=== PATIENT | female | born 1945 | race Caucasian/White ===

== ENCOUNTER → 2016-12-30 | Outpatient (CLI) | payer MEDICARE, BC ==
[~2016-12-30] MED LIST: ADVAIR 500/28 DISKUS IH; ALBUTEROL IH; ALLEGRA 180MG180 MG PO; AMARYL PO; AMARYL4 MG PO; AMLOPIDINE PO; ANTIVERT 25MG25 MG PO; ASPIRIN 32325 MG/TAB PO; ASPIRIN E.C. 8181 MG PO; ATACAND 16M16 MG/TAB PO; ATACAND32 MG PO; ATROVENT INHALE14 GM IH; BACTRIM DS 8001 TAB PO; CELEBREX 200MG200 MG PO; CELEXA40 MG PO; CITALOPRAM20 MG PO; CLARITIN 1010 MG/TAB PO; COUMADIN 77.5 MG/TAB PO; COZAAR100 MG PO; FARXIGA5 PO; FERREX; FERROUS SU325 MG/TAB PO; FLONASE NASAL S16 GM NS; FOLIC ACID 40400 MCG PO; HALCION0.25 MG PO; IPRATROPIUM 2.2.5 ML IH; LASIX 20MG TABL20 MG PO; LASIX 40MG TABL40 MG PO; LEVEMIR100 U/ML SC; LEXAPRO 10MG10 MG PO; LOPRESSOR 225 MG/TAB PO; LORTAB 5/500 501 TAB PO; LORTAB 7.5/5001 TAB PO; METFORMIN HCL1000 MG PO; METHADONE H10 MG/TAB PO; MICRO K PO; MICRO-K 1010 MEQ PO; NEXIUM 40MG40 MG PEG; NEXIUM40 MG PO; NORVASC 5MG5 MG/TAB PO; ONGLYZA5 MG PO; PERCOCET 325 MG1 TA2 PO; POTASSIUM CHLO10 ME2 PO; PREDNISONE1 MG PO; PREMARIN 0.60.625 MG PO; REGLAN 10MG10 MG/TAB PO; RT ADVAIR 228 DISKUS IH; SINGULAIR 110 MG/TAB PO; SINGULAIR10 MG PO; ULTRAM 50MG TAB50 MG PO; VITAMIN C BUFF500 MG PO; ZANTAC 150MG T150 MG PO; ZYRTEC 10MG PO; ZYRTEC5 MG PO; amaryl; depression med; feldene
== END ==
LOC: COL.LAB 16:14
DX: R06.02 Shortness of breath (principal); R63.5 Abnormal weight gain

== ENCOUNTER → 2017-01-13 | Outpatient (CLI) | payer MEDICARE, BC ==
[2017-01-13 11:28] LABS: ANION GAP 10 mmol/L (7-16); BLOOD UREA NITROGEN 18 mg/dL (7-17); CALCIUM 9.8 mg/dL (8.4-10.2); CARBON DIOXIDE 29 mmol/L (22-30); CHLORIDE 102 mmol/L (98-107); CREATININE, serum 0.71 mg/dL (0.52-1.25); GLUCOSE 181 mg/dL (74-106); POTASSIUM 3.9 mmol/L (3.4-5.0); SODIUM 141 mmol/L (137-145)
[2017-01-13 11:40] LABS: B-TYPE NATRIURETIC PEPTIDE 59 pg/mL (0-125)
[2017-01-13 11:50] LABS: TROPONIN-I < 0.012 ng/mL (0.000-0.034)
== END ==
LOC: COL.RAD 10:43
PROVIDERS: Family Medicine
DX: R06.02 Shortness of breath (principal); Z86.711 Personal history of pulmonary embolism
CPT/HCPCS: Q9967

== ENCOUNTER → 2017-01-13 | Outpatient (CLI) | payer MEDICARE, BC | LOC: ZCOL.LAB 13:31 | DX: Z01.89 Encounter for other specified special examinations (principal) ==

== ENCOUNTER 2017-04-03 20:20 | Emergency (ER) | payer MEDICARE, BC ==
[~2017-04-03] VITALS: Ht 149.9 cm; Wt 137.3 kg
[2017-04-03 20:25] VITALS: BP 137/69; TEMP 100
[2017-04-03] MEDS ORDERED: ALBUTEROL0.83 MG/ML IH ×2 (21:14→22:26)
[2017-04-03] MEDS ORDERED: CELEBREX 200MG200 MG PO (21:15)
[2017-04-03 21:16] LABS: BASO % 0.3 % (0.0-2.0); EOS # 0.3 (0.0-0.7); GRAN # 8.4 (1.4-6.5); GRAN % 77.9 % (42.2-75.2); HEMATOCRIT 45.2 % (37.0-47.0); HEMOGLOBIN 14.6 g/dl (12.5-16.0); LYMPH # 1.1 (1.2-3.4); LYMPH % 10.2 % (20.0-51.0); MEAN CELL VOLUME 100 fl (80.0-100.0); MEAN CORPUSCULAR HEMOGLOBIN 32 pg (27.0-31.0); MEAN CORPUSCULAR HGB CONC 32 g/dl (33.0-37.0); MONO # 0.9 (0.1-0.6); MONO % 8.2 % (1.7-9.3); PLATELET COUNT 212 K/mm3 (130-400); RED BLOOD COUNT 4.51 M/mm3 (4.10-5.30); WHITE BLOOD COUNT 10.8 K/mm3 (4.8-10.8)
[2017-04-03] MEDS ORDERED: LOTRISONE 0.05%1 CRE TOP (21:17)
[2017-04-03] MEDS ORDERED: RT ADVAIR 228 DISKUS IH (21:18)
[2017-04-03] MEDS ORDERED: ATROVENTNS0.03% NS (21:20)
[2017-04-03] MEDS ORDERED: CLARITIN 1010 MG/TAB PO (21:22)
[2017-04-03 21:32] LABS: CALCIUM 9.2 mg/dL (8.4-10.2); CREATININE, serum 0.99 mg/dL (0.52-1.25); POTASSIUM 3.8 mmol/L (3.4-5.0)
[2017-04-03 21:56] LABS: INFLUENZA A NEGATIVE; INFLUENZA B NEGATIVE
[2017-04-03] MEDS ORDERED: PREDNISONE10 MG PO (22:25)
[2017-04-03] MEDS ORDERED: LEVAQUIN 750MG750 M1 PO (22:25)
[2017-04-03 22:47] VITALS: PULSE 92
== END 2017-04-03 22:47 | disposition home or self-care (01) ==
LOC: COL.ER 20:20
PROVIDERS: Emergency Medicine
DX: J44.1 Chronic obstructive pulmonary disease with (acute) exacerbation (principal); Z79.84 Long term (current) use of oral hypoglycemic drugs
CPT/HCPCS: J7512

== ENCOUNTER 2017-09-07 11:15 | Outpatient (RCR) | payer MEDICARE, BC ==
[~2017-09-07 11:15] MED LIST changes: +ALBUTEROL0.83 MG/ML IH; +ATROVENTNS0.03% NS; +LEVAQUIN 750MG750 M1 PO; +LOTRISONE 0.05%1 CRE TOP; +PREDNISONE10 MG PO
== END 2017-09-14 14:00 | disposition home or self-care (01) ==
LOC: WSST 11:15
DX: R49.0 Dysphonia (principal)
CPT/HCPCS: G9171-GN; G9172-GN; G9173-GN

== ENCOUNTER → 2018-01-30 | Outpatient (CLI) | payer MEDICARE, BC | LOC: COL.RAD 09:45 | DX: M19.011 Primary osteoarthritis, right shoulder (principal) | CPT/HCPCS: J3301; Q9967 ==